=== PATIENT | male | born 1925 | race Caucasian/White ===

== ENCOUNTER 2016-05-08 07:42 | Outpatient (CLI) | payer MEDICARE | END 2016-05-08 07:43 | disposition home or self-care (01) | DX: I48.91 Unspecified atrial fibrillation (principal); Z79.01 Long term (current) use of anticoagulants ==

== ENCOUNTER 2016-05-24 08:52 | Outpatient (CLI) | payer MEDICARE | END 2016-05-24 08:53 | disposition home or self-care (01) | DX: I48.91 Unspecified atrial fibrillation (principal); Z79.01 Long term (current) use of anticoagulants ==